=== PATIENT | male | born 1990 | race Caucasian/White ===

== ENCOUNTER 2018-05-20 23:35 | Emergency (ER) | payer BC, SELFPAY ==
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
[2018-05-21] MEDS ORDERED: ACETAMINOPHEN 500 MG TAB ONE (01:15)
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
== END 2018-05-21 01:23 | disposition home or self-care (01) ==
LOC: ER 23:35
DX: S01.01XA Laceration without foreign body of scalp, initial encounter (principal); V86.69XA Passenger of other special all-terrain or other off-road motor vehicle injured in nontraffic accident, initial encounter; Y93.89 Activity, other specified
CPT/HCPCS: 99283

== ENCOUNTER 2018-05-27 18:20 | Emergency (ER) | payer BC ==
--- NOTE | 2018-05-27 18:41 | ER ---
Nurse's Notes [facility] Name: Andi Honeycutt Age: 28 yrs Sex: Male : 1990 Arrival Date: 05/27/2018 Time: 18:24 Bed 12 Private MD: None, None Diagnosis: Encounter for removal of lulu Presentation: 05/27 18:27 Presenting complaint: Patient states: Staple removal from head x3. Transition of care: la1 patient was not received from another setting of care. Onset of symptoms was May 27, 2018. Risk Assessment: Do you want to hurt yourself or someone else? Patient reports no desire to harm self or others. Initial Sepsis Screen: Does the patient meet any 2 criteria? No. Patient's initial sepsis screen is negative. Does the patient have a suspected source of infection? No. Patient's initial sepsis screen is negative. Care prior to arrival: None. 18:27 Method Of Arrival: Ambulatory la1 18:27 Acuity: ROSE 5 la1 Historical: - Allergies: 18:27 No Known Allergies; la1 - PMHx: 18:27 None; la1 - Immunization history:: Adult Immunizations up to date. - Social history:: Smoking status: Patient/guardian denies using tobacco. - Ebola Screening: : No symptoms or risks identified at this time. Screenin:28 Abuse screen: Denies threats or abuse. Nutritional screening: No deficits noted. la1 Tuberculosis screening: No symptoms or risk factors identified. Fall Risk None identified. Assessment: 18:28 General: Appears in no apparent distress. Behavior is calm, cooperative. Pain: Denies la1 pain. Neuro: Level of Consciousness is awake, alert, obeys commands. Cardiovascular: Capillary refill < 3 seconds Patient's skin is warm and dry. Respiratory: Airway is patent Respiratory effort is even, unlabored, Respiratory pattern is regular, symmetrical. GI: No signs and/or symptoms were reported involving the gastrointestinal system. : No signs and/or symptoms were reported regarding the genitourinary system. Vital Signs: 18:27 BP 126 / 85; Pulse 78; Resp 16; Temp 97.2; Pulse Ox 100% on R/A; la1 ED Course: 18:24 Patient arrived in ED. sb2 18:24 None, None is Private Physician. sb2 18:27 Triage completed. la1 18:28 Arm band placed on left wrist. la1 18:28 Placed in gown. Bed in low position. la1 18:28 No provider procedures requiring assistance completed. Patient did not have IV access la1 during this emergency room visit. 18:30 Gilbert Werner PA is PHCP. cp 18:30 George Perales MD is Attending Physician. cp 18:50 Tenzin Webb, RN is Primary Nurse. la1 Administered Medications: No medications were administered Outcome: 18:41 Discharge ordered by MD. cp 18:50 Discharged to home ambulatory. la1 18:50 Condition: stable 18:50 Discharge instructions given to patient, Instructed on discharge instructions, follow up and referral plans. Demonstrated understanding of instructions, follow-up care, wound care. 18:51 Patient left the ED. la1 Signatures: Tenzin Webb RN RN la1 Gilbert Werner PA PA Gissel Ruvalcaba sb2
--- NOTE | 2018-05-28 18:51 | EDPHYS ---
Physician Documentation [facility] Name: Andi Honeycutt Age: 28 yrs Sex: Male : 1990 Arrival Date: 05/27/2018 Time: 18:24 Bed 12 Private MD: None, None ED Physician George Perales HPI: 05/27 18:38 This 28 yrs old Male presents to ER via Ambulatory with complaints of Suture cp Removal. 18:38 The patient has lulu on the scalp. cp 18:40 Previous treatment: The patient was initially treated on May 21, 2018, the care cp was rendered at [facility], Treatment type: The patient's original treatment included lulu. Sutures/lulu progress: The patient has no c/o's. The wound is well-healing with no redness, swelling, discharge, or dehiscence reported. Historical: - Allergies: 18:27 No Known Allergies; la1 - PMHx: 18:27 None; la1 - Immunization history:: Adult Immunizations up to date. - Social history:: Smoking status: Patient/guardian denies using tobacco. - Ebola Screening: : No symptoms or risks identified at this time. ROS: 18:40 All other systems are negative. cp Exam: 18:40 Skin: Wound recheck: Staple laceration closure: the wound is healing well, the edges cp are well approximated, no evidence of dehiscence, no drainage, no erythema, no swelling. Vital Signs: 18:27 BP 126 / 85; Pulse 78; Resp 16; Temp 97.2; Pulse Ox 100% on R/A; la1 MDM: 18:30 Patient medically screened. cp 18:41 Data reviewed: vital signs, nurses notes, and as a result, I will discharge patient. cp 18:41 Counseling: I had a detailed discussion with the patient and/or guardian regarding: the cp historical points, exam findings, and any diagnostic results supporting the discharge/admit diagnosis, to return to the emergency department if symptoms worsen or persist or if there are any questions or concerns that arise at home. Administered Medications: No medications were administered Disposition: 05/27/18 18:41 Discharged to Home. Impression: Encounter for removal of lulu. - Condition is Stable. - Discharge Instructions: Stitches, [place], or Adhesive Wound Closure. - Medication Reconciliation Form, Thank You Letter, Antibiotic Education, Prescription Opioid Use form. - Follow up: Emergency Department; When: As needed; Reason: Worsening of condition. - Problem is new. - Symptoms have improved. Signatures: Tenzin Webb RN RN la1 Gilbert Werner PA PA cp Corrections: (The following items were deleted from the chart) 18:51 18:41 05/27/2018 18:41 Discharged to Home. Impression: Encounter for removal of la1 lulu. Condition is Stable. Forms are Medication Reconciliation Form, Thank You Letter, Antibiotic Education, Prescription Opioid Use. Follow up: Emergency Department; When: As needed; Reason: Worsening of condition. Problem is new. Symptoms have improved. cp
== END 2018-05-27 18:51 | disposition home or self-care (01) ==
LOC: ER 18:20
DX: Z48.02 Encounter for removal of sutures (principal)
CPT/HCPCS: 99281